=== PATIENT | male | born 1970 | race Caucasian/White ===

== ENCOUNTER 2023-12-21 15:08 | Outpatient (REF) | payer OTHER, SELFPAY ==
--- NOTE | ~2023-12-21 | XR_ITS ---
EXAMINATION: XR BILATERAL FEET XR RIGHT KNEE XR BILATERAL WRISTS CLINICAL INFORMATION: Arthropathic psoriasis unspecified. COMPARISON: None available. TECHNIQUE: 2 views of the right knee. 3 views of each foot. 4 views of each wrist. FINDINGS: RIGHT KNEE: Small joint effusion. Minimal posterior patellar spurring. Patellofemoral space preserved on sunrise view. Faint amorphous calcifications in the soft tissues posterior to the knee. LEFT FOOT: Ankle joint effusion. Moderate plantar calcaneal spur. Metatarsus adductus, hallux valgus with moderate degenerative changes first metatarsophalangeal joint. Destructive process at the second digit DIP joint with irregularity of subjacent articular surfaces, subluxation and widening of the joint space. There is asymmetric widening along the medial aspect of the fifth digit IP joint space. There are lucencies at the base of the first digit distal phalanx possibly representing erosions. RIGHT FOOT: Joint effusion. Redemonstration of ORIF hardware distal fibular fracture with lateral plate and screws. Moderate plantar calcaneal spur. Degenerative changes in the tibiotalar joint. Metatarsus adductus, hallux valgus with moderate degenerative changes first metatarsophalangeal joint. Destructive process at the second digit DIP joint with irregularity of subjacent articular surfaces, widening of the joint space and subluxation. Erosion at base of distal tuft of third and possibly fifth digits. Lateral subluxation of the distal tuft of fifth digit. RIGHT WRIST: Moderate degenerative changes in the first carpometacarpal joint. Cystic lucencies/erosions in the ulnar styloid. Narrowing of the radiocarpal row. Narrowing and sclerosis between the lunate and distal carpal row. LEFT WRIST: Moderate degenerative changes in the first carpometacarpal joint with joint space narrowing and hypertrophic change. Narrowing of the radiocarpal row. Narrowing and sclerosis between the lunate and the distal carpal row. Small lucency in the lunate. XR/XR foot LT min 3V IMPRESSION: 1. Small right knee joint effusion. 2. Degenerative changes in bilateral first metatarsophalangeal joints. 3. Destructive process involving bilateral toes with erosive component as detailed above. 4. Bilateral plantar calcaneal spurs. 5. Degenerative changes in bilateral wrists with cystic lucencies/erosions in the bilateral ulnar styloids.
--- NOTE | ~2023-12-21 | XR_ITS ---
EXAMINATION: XR ANKLE, RIGHT CLINICAL INFORMATION: Arthropathic psoriasis, unspecified COMPARISON: Same-day right foot TECHNIQUE: AP and oblique views of the right ankle. FINDINGS: The patient is status post ORIF of distal fibular fracture with lateral plate and screws. The hardware appears intact. No acute fracture. Multiple cystic changes and sclerosis are seen in the medial distal tibia. Well-corticated ossific density inferior to the medial malleolus is likely due to old trauma. No acute fracture. There is mild widening of the lateral gutter of the ankle mortise. Mild erosive changes are seen within the medial aspect of the medial malleolus. XR/XR ankle RT min 3V IMPRESSION: 1. Mild widening of the lateral gutter of the ankle mortise. 2. Multiple cystic changes and sclerosis in the medial distal tibia. 3. Mild erosive changes within the medial aspect of the medial malleolus. 4. Status post ORIF distal fibular fracture. The hardware appears intact.
--- NOTE | ~2023-12-21 | XR_ITS ---
EXAMINATION: XR KNEE, LEFT CLINICAL INFORMATION: Arthropathic cellulitis, unspecified COMPARISON: Same-day AP standing views of both knees TECHNIQUE: Four views of the left knee. FINDINGS: There is soft tissue swelling anterior to the knee. No fracture. There is a small joint effusion. Joint spaces are maintained. Vascular calcification is seen. No abnormal soft tissue calcification. Question fullness posterior to the knee. Ultrasound of the popliteal fossa could be obtained for further evaluation. XR/XR knee LT 3V IMPRESSION: 1. No bony abnormality. 2. Question of fullness posterior to the knee. Ultrasound of the popliteal fossa could be obtained for further evaluation.
--- NOTE | ~2023-12-21 | XR_ITS ---
EXAMINATION: XR ANKLE, LEFT CLINICAL INFORMATION: Arthropathic psoriasis, unspecified COMPARISON: Same-day left foot TECHNIQUE: AP and oblique views of the left ankle. FINDINGS: No fracture. Alignment is anatomic. No erosions. Joint spaces are maintained. Soft tissues are normal. XR/XR ankle LT min 3V IMPRESSION: No bony abnormality.
--- NOTE | ~2023-12-21 | XR_ITS ---
EXAMINATION: XR KNEE AP STANDING CLINICAL INFORMATION: Arthropathic psoriatic risk, unspecified COMPARISON: None available. TECHNIQUE: AP bilateral standing view of the knees was obtained. FINDINGS: No fracture. Medial and lateral joint compartments are maintained.. No abnormal soft tissue calcification. Small erosive changes involve the right lateral proximal tibia. XR/XR knee standing BI IMPRESSION: Small erosive changes involve the right lateral proximal tibia.
[2023-12-21 16:18] LABS: MANUAL DIFF FLAG NO
[2023-12-21 17:17] LABS: Basophils Absolute Auto 0.1 X10*3/uL (0.0-0.2); Basophils Percent Auto 0.6 % (0-2); Eosinophils Absolute Auto 0.2 X10*3/uL (0.0-0.4); Eosinophils Percent Auto 1.9 % (0-4); Hematocrit 44.8 % (42.0-52.0); Hemoglobin 14.5 g/dl (14.0-18.0); Imm Gran Abs Auto 0.03 X10*3/uL (0.00-0.03); Imm Gran Pct Auto 0.3 % (0.0-0.4); Lymphocytes Percent Auto 19.5 % (20-40); Mean Corpuscular HGB Conc 32.4 g/dl (31.0-36.0); Mean Corpuscular Hemoglobin 27.9 pg (27.0-33.0); Mean Corpuscular Volume 86.3 fL (80.0-98.0); Mean Platelet Volume 9.7 fL (9.4-12.4); Monocytes Absolute Auto 0.8 X10*3/uL (0.1-1.2); Monocytes Percent Auto 8.1 % (2-11); Neutrophils Absolute Auto 6.9 x10*3/uL (2.0-8.3); Neutrophils Percent Auto 69.6 % (45-73); Platelet Count 364 X10*3/uL (160-400); Red Blood Count 5.19 X10*6/uL (4.60-5.80); Red Cell Distribution Width 13.9 % (11.0-16.0)
[2023-12-21 18:08] LABS: Alanine Aminotransferase 13 U/L (0-40); Albumin Level 4.4 g/dL (3.5-5.0); Alkaline Phosphatase 156 U/L (39-117); Anion Gap 15 (12-20); Aspartate Amino Transferase 12 U/L (5-37); Bilirubin Total 0.3 mg/dL (0.0-1.0); Blood Urea Nitrogen 21 mg/dL (9-16); C Reactive Protein 4.48 mg/dL (< or = 0.50); Carbon Dioxide 24 mmol/L (22-29); Chloride 103 mmol/L (96-108); Estimated Glomerular Filt Rate > 60; Glucose Random 101 mg/dL (60-115); Potassium 4.1 mmol/L (3.3-5.1); Sodium 138 mmol/L (135-145); Total Protein 8.4 g/dL (6.5-8.0)
[2023-12-21 18:18] LABS: Erythrocyte Sedimentation Rate 49 MM/HR (0-15)
[2023-12-22 05:13] LABS: HBS Num1 0.43 mIU/mL (0-7.99); HBc Num1 0.28 S/CO (0.00-0.79); HBsAGNum1 0.41 S/CO (0.00-0.99); Hepatitis A Antibody IgM 0.16 Index (0-0.79); Hepatitis B Core Antibody Nonreactive (Nonreactive); Hepatitis B Surface Antigen Negative (Negative); ~HepC Num1 0.11 S/CO (0.00-0.79); ~Hepatitis A Antibody IgM Nonreactive (Nonreactive); ~Hepatitis B Surface Antibody NONREACTIVE (Nonreactive); ~Hepatitis C Antibody Nonreactive (Nonreactive)
[2023-12-23 21:29] LABS: Prot Elec - Albumin 3.9 g/dL (3.8-4.8); Prot Elec - Alpha1 0.4 g/dL (0.2-0.3); Prot Elec - Beta 1 0.5 g/dL (0.4-0.6); Prot Elec - Beta 2 0.6 g/dL (0.2-0.5); Prot Elec - Gamma 1.2 g/dL (0.8-1.7); Prot Elec - Total Protein 7.7 g/dL (6.1-8.1)
[2023-12-24 14:49] LABS: TS Negative Control Passed; TS Panel A 0; TS Panel B 0; TS Positive Control Passed; TSpotTB Negative (Negative)
[2023-12-25 13:34] LABS: HLA B27 Negative (Negative)
[2023-12-25 15:34] LABS: Cyclic Citrullinated Peptide <16 UNITS
[2024-01-01 23:08] LABS: IgA 512 mg/dL (47-310); IgG 1306 mg/dL (600-1640); IgM 130 mg/dL (50-300)
== END 2023-12-21 15:09 | disposition home or self-care (01) ==
LOC: HO.XRAY 15:08
PROVIDERS: PCP Registered Nurse; Visit Provider Student in an Organized Health Care Education/Training Program
DX: Z11.7 Encounter for testing for latent tuberculosis infection (principal); Z11.59 Encounter for screening for other viral diseases; L40.50 Arthropathic psoriasis, unspecified; M45.9 Ankylosing spondylitis of unspecified sites in spine; M25.50 Pain in unspecified joint; Z72.89 Other problems related to lifestyle
CPT/HCPCS: 36415; 73110; 73130; 73562; 73565; 73610; 73630; 80053; 82784; 84165; 85025; 85652; 86140; 86200; 86334; 86481; 86704; 86706; 86709; 86803; 86812; 87340

== ENCOUNTER 2023-12-21 15:08 | Outpatient (AMB) | payer OTHER, SELFPAY ==
--- NOTE | 2023-12-21 15:11 | A.OFFVIS_ITS ---
Vital Signs 3 12/21/23 15:13 Height 5 ft 9 in Weight 208 lb 5.389 oz BMI 30.8 BP 146/94 H Blood Pressure Location Rt brachial Position Sitting Pulse 98 Pulse Oximetry (%) 97 Intake Visit Reasons: arthritis Intake Note: New patient, presents today for arthritis consult. Reports all major joints have been bothering him for over 1.5 year. Currently on Meloxicam. Has tried prednisone. Accompanied by: Self / Same As Patient Allergies No Known Allergies Allergy (Verified 12/21/23 15:17) Medication List - Last Reconciled 12/21/23 by Laura Espinosa MD acetaminophen (Tylenol) 325 mg PO QID PRN meloxicam 15 mg PO DAILY HPI Comments Details: This is a 53-year-old male who presents for evaluation of multiple joint pain. Patient has history of alcohol abuse and he completely quit alcohol consumption about a year ago. He states that he believes he has had joint pain for more than a year and a half but likely the alcohol was helping with the pain. He is having pain in his hands, wrists, elbows, shoulders, feet, knees. Morning stiffness lasting 1-2 hours. He has been taking meloxicam 15 mg daily as well as 400 mg of Advil and Tylenol which provides some relief. He was diagnosed with psoriasis approximately 10 years ago intermittently treated with topical psoralen. He never required systemic treatment for psoriasis. He has lost more than 20 lb over the last year that he believes is due to limitation of alcohol consumption. He was also recently diagnosed with diabetes mellitus. He states that his mother had some form of arthritis that was quite severe but does not recall its name. [facility] Medical History Psoriasis Type 2 diabetes mellitus without complication, with long-term current use of insulin Polyarthralgia Cigarette smoker Diabetes Surgical History History of ankle surgery Social History Household Members: None Patient Tobacco Use Status: Current everyday Tobacco user Cigarettes Per Day: 10 Current occupational status: employed Current occupation: [employer] Review [employer] Systems Const Reports fatigue GI Reports heartburn Musc Reports arthralgias, Reports joint swelling and Reports stiffness Skin/Breast Reports rash Endo Reports fatigue Physical Exam Vital Signs: Last Vital Signs Pulse 98 12/21/23 15:13 BP 146/94 H 12/21/23 15:13 Pulse Ox 97 12/21/23 15:13 BMI result Body Mass Index 30.8 Const General: cooperative, healthy appearing and comfortable Nutritional Appearance: overweight Orientation/consciousness: patient oriented x3 Limitations: no limitations HEENT Head: Yes normocephalic and Yes atraumatic Mouth: moist mucous membranes Resp Effort & Inspection: normal respiratory effort and able to speak in complete sentences Skin Other: Psoriasis patches in front of his anterior hairline, on both elbows Neuro General: patient oriented x3 Extrem Other: Bilateral wrist swelling and tenderness to palpation, pain with any range of motion Multiple tender joints and dactylitis as shown in pictures Nail onycholysis significantly limited shoulder abduction bilaterally Results Reviewed Results Reviewed: Labs 09/2023 HDL 36? Cholesterol 188? LDL 121? Triglycerides 157 CMP unremarkable except for alk-phos 191 (<117) Glucose 372 AST/ALT normal RF negative HbA1c 11.3% Assessment & Plan Assessment & Plan (1) Psoriatic arthritis: Code(s): L40.50 - Arthropathic psoriasis, unspecified Category: Medical Plan: This is a 53-year-old male with history of psoriasis who presents for evaluation of inflammatory arthritis. Patient has been having 1 year and a half history of polyarthritis. On exam he has multiple swollen and tender joints. Dactylitis, DIP involvement. Clinical picture consistent with psoriatic arthritis. Check labs to evaluate disease activity. Check baseline x-rays of involved joints. Discussed nature of psoriatic arthritis and need to start DMARDs. Discussed risks and benefits of methotrexate. Plan to start methotrexate 15 mg weekly for 2 weeks followed by 20 mg weekly. Folic acid 1 mg daily Advised patient not to combine meloxicam with Advil. For now continue with meloxicam 15 mg daily and Tylenol as needed Labs today and before next visit in 2 months Plan I spent 48 minutes reviewing patient's chart, evaluating patient, ordering diagnostic workup, counseling patient and documenting in the chart Orders: Orders 2 Complete Blood Count Auto Diff Today L40.50 - Arthropathic psoriasis, unspecified Comprehensive Met. Panel Today L40.50 - Arthropathic psoriasis, unspecified C Reactive Protein Today L40.50 - Arthropathic psoriasis, unspecified Immunofixation Pnl, Serum Today L40.50 - Arthropathic psoriasis, unspecified Protein Electrophoresis, Serum Today L40.50 - Arthropathic psoriasis, unspecified T Spot TB Today Z11.7 - Encounter for testing for latent tuberculosis infection HLA B27 Today M45.9 - Ankylosing spondylitis of unspecified sites in spine XR foot LT min 3V Today L40.50 - Arthropathic psoriasis, unspecified XR ankle LT min 3V Today L40.50 - Arthropathic psoriasis, unspecified XR ankle RT min 3V Today L40.50 - Arthropathic psoriasis, unspecified XR knee standing BI Today L40.50 - Arthropathic psoriasis, unspecified XR knee RT 3V Today L40.50 - Arthropathic psoriasis, unspecified Complete Blood Count Auto Diff 2 Months L40.50 - Arthropathic psoriasis, unspecified Comprehensive Met. Panel 2 Months L40.50 - Arthropathic psoriasis, unspecified C Reactive Protein 2 Months L40.50 - Arthropathic psoriasis, unspecified Erythrocyte Sedimentation Rate 2 Months L40.50 - Arthropathic psoriasis, unspecified Erythrocyte Sedimentation Rate Today L40.50 - Arthropathic psoriasis, unspecified Hepatitis A,B,C Profile Today Z11.59 - Encounter for screening for other viral diseases Cyclic Citrullinated Peptide Today M25.50 - Pain in unspecified joint XR hand wrist LT Today L40.50 - Arthropathic psoriasis, unspecified XR hand wrist RT Today L40.50 - Arthropathic psoriasis, unspecified XR foot RT min 3V Today L40.50 - Arthropathic psoriasis, unspecified XR knee LT 3V Today L40.50 - Arthropathic psoriasis, unspecified Coding Level of Care Code New Pt Level 4 (88855) Diagnoses Psoriatic arthritis L40.50
[2023-12-21 15:13] VITALS: BP 146/94; PULSE 98; O2SAT 97; BMI 30.8
== END 2023-12-21 15:48 | disposition home or self-care (01) ==
PROVIDERS: PCP Registered Nurse; Visit Provider Student in an Organized Health Care Education/Training Program
DX: L40.50 Arthropathic psoriasis, unspecified (principal)
CPT/HCPCS: 99204

== ENCOUNTER 2024-02-23 14:23 | Outpatient (AMB) | payer OTHER, SELFPAY ==
--- NOTE | 2024-02-23 14:36 | A.OFFVIS_ITS ---
Vital Signs 02/23/24 14:40 Height 5 ft 9 in Weight 213 lb 2.992 oz BMI 31.5 BP 134/70 Blood Pressure Location Rt brachial Position Sitting Pulse 86 Pulse Source Pulse Oximeter Pulse Oximetry (%) 95 Oxygen Delivery Method Room Air Intake Visit Reasons: PsA/CM Intake Note: Patient presents for PsA. Allergies No Known Allergies Allergy (Verified 02/23/24 14:39) Medication List - Last Reconciled 02/23/24 by Laura Espinosa MD acetaminophen (Tylenol) 325 mg PO QID PRN folic acid 1 mg PO DAILY meloxicam 15 mg PO DAILY methotrexate sodium Take 6 tabs once weekly for 2 weeks then 8 tabs weekly HPI Comments Details: This is a 53-year-old male with psoriasis and psoriatic arthritis who presents for follow-up. He has been taking methotrexate regularly for the last 2 months. Over the last 1-2 weeks he has noted some improvement of his overall joint pain and stiffness. About 35% improvement. Continues to be significantly s ymptomatic however. Continues to take meloxicam 15 mg daily Initial history: This is a 53-year-old male who presents for evaluation of multiple joint pain. Patient has history of alcohol abuse and he completely quit alcohol consumption about a year ago. He states that he believes he has had joint pain for more than a year and a half but likely the alcohol was helping with the pain. He is having pain in his hands, wrists, elbows, shoulders, feet, knees. Morning stiffness lasting 1-2 hours. He has been taking meloxicam 15 mg daily as well as 400 mg of Advil and Tylenol which provides some relief. He was diagnosed with psoriasis approximately 10 years ago intermittently treated with topical psoralen. He never required systemic treatment for psoriasis. He has lost more than 20 lb over the last year that he believes is due to limitation of alcohol consumption. He was also recently diagnosed with diabetes mellitus. He states that his mother had some form of arthritis that was quite severe but does not recall its name. [facility] Medical History Psoriasis Type 2 diabetes mellitus without complication, with long-term current use of insulin Polyarthralgia Cigarette smoker Diabetes Surgical History History of ankle surgery Social History Household Members: None Patient Tobacco Use Status: Current everyday Tobacco user Cigarettes Per Day: 10 Current occupational status: employed Current occupation: [employer] Const Reports fatigue GI Reports heartburn Musc Reports arthralgias, Reports joint swelling and Reports stiffness Skin/Breast Reports rash Endo Reports fatigue Physical Exam Vital Signs: Last Vital Signs Pulse 86 02/23/24 14:40 BP 134/70 02/23/24 14:40 Pulse Ox 95 02/23/24 14:40 Oxygen Delivery Method Room Air 02/23/24 14:40 BMI result Body Mass Index 31.5 Const General: cooperative, healthy appearing and comfortable Nutritional Appearance: overweight Orientation/consciousness: patient oriented x3 Limitations: no limitations HEENT Head: Yes normocephalic and Yes atraumatic Mouth: moist mucous membranes Resp Effort & Inspection: normal respiratory effort and able to speak in complete sentences Cardio Rate: regular rate Rhythm: regular rhythm Skin Other: Psoriasis patches in front of his anterior hairline, on both elbows Neuro General: patient oriented x3 Extrem Other: Significant deformities of both hands No wrist swelling or tenderness today but some pain with flexion-extension Significant DIP involvement of multiple joints including his right index finger, swelling of right 3rd finger Flexion deformity of right 5th finger No elbow pain with flexion-extension bilaterally Significant morbidities of both feet Assessment & Plan Assessment & Plan (1) Psoriatic arthritis: Comment: dx 12/2023. Deforming. Mostly DIP disease MTX 12/2023 ineffective Code(s): L40.50 - Arthropathic psoriasis, unspecified Category: Medical Plan: This is a 53-year-old male with history of psoriasis for follow-up. On methotrexate 20 mg weekly and folic acid 1 mg daily. Has been on methotrexate for 2 months now without any noticeable improvement on exam. Inflammatory markers remains significantly elevated. We will need to add DMARDs. Discussed risks and benefits of Humira. We also discussed bio similars. Patient agreed to proceed. 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 Patient fully aware. Advised patient to seek medical care JAYLYN if patient has an infection and advised patient to stop the medication until the infection is resolved. 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
[2024-02-23 14:40] VITALS: BP 134/70; PULSE 86; O2SAT 95; BMI 31.5
== END 2024-02-23 15:16 | disposition home or self-care (01) ==
PROVIDERS: PCP Registered Nurse; Referring Provider Registered Nurse; Visit Provider Student in an Organized Health Care Education/Training Program
DX: L40.50 Arthropathic psoriasis, unspecified (principal); Z79.631 Long term (current) use of antimetabolite agent; Z79.620 Long term (current) use of immunosuppressive biologic
CPT/HCPCS: 99214

== ENCOUNTER 2024-02-23 14:23 | Outpatient (REF) | payer OTHER, SELFPAY ==
[2024-02-23 15:35] LABS: MANUAL DIFF FLAG NO
[2024-02-23 15:44] LABS: Basophils Absolute Auto 0.1 X10*3/uL (0.0-0.2); Basophils Percent Auto 0.6 % (0-2); Eosinophils Absolute Auto 0.2 X10*3/uL (0.0-0.4); Eosinophils Percent Auto 1.9 % (0-4); Hematocrit 42.3 % (42.0-52.0); Hemoglobin 14.1 g/dl (14.0-18.0); Imm Gran Abs Auto 0.04 X10*3/uL (0.00-0.03); Imm Gran Pct Auto 0.4 % (0.0-0.4); Lymphocytes Absolute Auto 1.5 X10*3/uL (1.2-4.9); Lymphocytes Percent Auto 16.9 % (20-40); Mean Corpuscular HGB Conc 33.3 g/dl (31.0-36.0); Mean Corpuscular Hemoglobin 28.8 pg (27.0-33.0); Mean Corpuscular Volume 86.3 fL (80.0-98.0); Mean Platelet Volume 9.2 fL (9.4-12.4); Monocytes Absolute Auto 0.7 X10*3/uL (0.1-1.2); Neutrophils Absolute Auto 6.5 x10*3/uL (2.0-8.3); Neutrophils Percent Auto 72.2 % (45-73); Platelet Count 280 X10*3/uL (160-400); Red Cell Distribution Width 16.3 % (11.0-16.0)
[2024-02-23 16:13] LABS: Alanine Aminotransferase 11 U/L (0-40); Albumin Level 4.3 g/dL (3.5-5.0); Alkaline Phosphatase 144 U/L (39-117); Anion Gap 14 (12-20); Aspartate Amino Transferase 11 U/L (5-37); Bilirubin Total 0.2 mg/dL (0.0-1.0); Blood Urea Nitrogen 15 mg/dL (9-16); C Reactive Protein 4.97 mg/dL (< or = 0.50); Calcium 9.8 mg/dL (8.4-10.2); Carbon Dioxide 26 mmol/L (22-29); Chloride 104 mmol/L (96-108); Estimated Glomerular Filt Rate > 60; Glucose Random 90 mg/dL (60-115); Potassium 4.4 mmol/L (3.3-5.1); Sodium 140 mmol/L (135-145)
[2024-02-23 16:39] LABS: Erythrocyte Sedimentation Rate 36 MM/HR (0-15)
== END 2024-02-23 14:24 | disposition home or self-care (01) ==
LOC: HO.LAB 14:23
PROVIDERS: PCP Registered Nurse; Visit Provider Student in an Organized Health Care Education/Training Program
DX: L40.50 Arthropathic psoriasis, unspecified (principal); Z79.631 Long term (current) use of antimetabolite agent; Z79.620 Long term (current) use of immunosuppressive biologic
CPT/HCPCS: 36415; 80053; 85025; 85652; 86140